=== PATIENT | female | born 1960 | race Hispanic/Latino ===

== ENCOUNTER 2025-04-16 16:54 | Emergency (ER) | payer MEDICARE, SELFPAY ==
[2025-04-16 17:27] VITALS: BP 163/68; PULSE 84; RESP 16; TEMP 36.9; O2SAT 100
--- NOTE | 2025-04-16 17:41 | ED.NECK ---
HPI - Neck Pain/Injury General Chief Complaint: Neck Pain/Injury Stated Complaint: neck pain Time Seen by Provider: 04/16/25 17:15 Source: patient, family and RN notes reviewed Mode of arrival: ambulatory Limitations: no limitations and language barrier (Client Development Consultant used) History of Present Illness HPI Narrative: 65-year-old female presents to the [facility] complaining of neck pain that started 2 days ago. Reports the pain is on the right side of her neck, she denies any falls or injuries, she said she woke up with the symptoms. Patient reports her neck feels tight and radiates pain up into the back of her head. She has also been dealing with back pain to her right lower back 2 weeks. Patient denies any falls or injuries. Denies any numbness, tingling, radiating pain, she pains, weakness, chest pain, difficulty breathing, vision changes, headaches, slurred speech, or any other symptoms. Patient has been taking eating since yesterday for pain, she has been trying Motrin without relief. Patient is tearful in the room. Patient reports a history of diabetes and hypertension. Patient has never had pain like this in her neck before. Related Data Home Medications ?Medication ?Instructions ?Recorded ?Confirmed ?Last Taken ?Type insulin degludec 100 unit/mL (3 unit subcut 04/16/25 Unknown History mL) subcutaneous pen (Tresiba FlexTouch U-100 insulin) levothyroxine 75 mcg tablet mcg 04/16/25 Unknown History lisinopril 20 tablet 04/16/25 Unknown History mg-hydrochlorothiazide 25 mg tablet metformin 1,000 mg tablet mg 04/16/25 Unknown History Allergies Allergy/AdvReac Type Severity Reaction Status Date / Time No Known Allergies Allergy Mild Verified 04/16/25 17:26 Review of Systems Review of Systems: CONSTITUTIONAL: Denies fever, chills, or sweats. EYES: Denies visual changes, redness, or discharge. ENT: Denies rhinorrhea, congestion, sore throat, or otalgia. CARDIOVASCULAR: Denies chest pain, palpitations, dizziness, lightheadedness or edema. RESPIRATORY: Denies cough or dyspnea. GASTROINTESTINAL: Denies abdominal pain, nausea, vomiting, or diarrhea. GENITOURINARY: Denies dysuria or hematuria. SKIN: Denies rash or itching. MUSCULOSKELETAL: Positive for neck pain and low Back pain. Negative for joint pain, or myalgia. NEUROLOGIC: Denies headache,, loss of consciousness, slurred speech, focal weakness, numbness, or weakness. PSYCHIATRIC: Denies anxiety or depression. All other systems reviewed are negative, except as documented in HPI. PMFSH Comments At the time of my signature, I reviewed and agree with the nursing past medical, surgical, social, and family history. There is no relevant family history pertinent to the patient complaint. Exam Narrative: GENERAL: This is a well-nourished, well-developed adult, in no apparent distress. They are non ill-appearing, nontoxic appearing. Patient is crying. HEAD: normocephalic, atraumatic. EYES: Sclera clear/white. Conjunctiva normal. Vision is grossly intact. Extraocular movements intact. Pupils PERRLA EARS: External ears normal, auditory canals clear and without drainage, TMs normal without perforation. Hearing grossly intact. NOSE: External nose normal THROAT: Mucous membranes moist, NECK: Neck supple, non-tender without lymphadenopathy, masses or thyromegaly. Limited range of motion due to pain. Right-sided neck is tender to palpate into the right trapezius muscle. CARDIOVASCULAR: Regular rate and rhythm without murmurs, gallops, or rubs. RESPIRATORY: Clear to auscultation. Breath sounds equal bilaterally. No wheezes, rales, or rhonchi. SKIN: warm, Dry, intact with no suspicious lesions or rash, good texture and turgor. NEURO: awake, alert, and oriented to person, place and time. There were no obvious focal neurologic abnormalities. EXTREMITIES: No joint tenderness, effusion, or edema noted. BACK: Mild tenderness to right lower back. No cervical, thoracic, lumbar point tenderness, crepitus, or step-offs. No CVA tenderness. Course Course Emergency Course: Portions of this record may have been created with voice recognition software Level of Care: Express Care Visit Vital Signs Vital signs: Vital Signs Temperature 98.4 F 04/16/25: Pulse Rate 84 04/16/25 17: Respiratory Rate 16 04/16/25 17: Blood Pressure 163/68 H 04/16/25 17: Pulse Oximetry 100 04/16/25 17: Temperature 98.4 F 04/16/25 17: Pulse Rate 84 04/16/25 17:27 Respiratory Rate 16 04/16/25 17:27 Blood Pressure 163/68 H 04/16/25 17:27 Pulse Oximetry 100 04/16/25 17:27 Reviewed MDM - Neck Pain/Injury MDM Narrative Medical decision making narrative: Patient tearful in the room during exam due to pain, she says she has never had pain like this before. She denies any falls or injuries, she denies any issues with her neck or back in the past. I suspect patient probably has a cervical strain. I offered patient ER transfer for further evaluation management of symptoms given severe pain I informed her we are unable to provider any rapid pain relief your at the [facility]. Patient would like to try outpatient medications prior to going to the ER. Will send a prescription of cyclobenzaprine to her pharmacy and lidocaine patches. Discussed supportive care. Strict ER precautions discussed with patient specially pain is not resolving other associated symptoms occurs such as headaches, vision changes, one-sided weakness, chest pain, breathing problems, fevers numbness, tingling, shooting pains, or any serious concerns Differential Diagnosis Differential diagnosis: Likely cervical radiculopathy, cervical spondylosis and strain of neck muscle Critical Care Time Critical Care Time Critical Care Time: No Discharge Plan Discharge Clinical Impression: Strain of neck muscle Qualifiers: Encounter type: initial encounter Qualified Code(s): S16.1XXA - Strain of muscle, fascia and tendon at neck level, initial encounter Patient Disposition: Home Condition: Stable Instructions: Cervical Sprain (ED) Additional Instructions: Take the muscle relaxer as directed. Do not drive or operate heavy machine, or work while taking the medication as it can make you drowsy. Use the lidocaine patches as directed. You may take ibuprofen 600 mg to 800 mg every 6-8 hours. Do not exceed more than 800 mg of ibuprofen per dose. Do not exceed more than 3200 mg ibuprofen in a day. You may take up to 1000 mg Tylenol every 6-8 hours. Do not exceed 1000 mg per dose, do exceed more than 4000 mg of Tylenol in a day. Apply ice or heat to the affected area, 20 minutes at a time, a few times a day. Please follow-up with your primary care provider 3-5 days. Go to the emergency department if your pain is uncontrollable, developed numbness, tingling, weakness, chest pain, breathing problems, nausea, vomiting, fevers, or any serious concerns [place] el relajante muscular seg?n las indicaciones. No conduzca, opere maquinaria pesada ni trabaje mientras est? tomando el medicamento, ya que puede causarle somnolencia. Use los parches de lidoca?na seg?n las indicaciones. Puede sosa ibuprofeno de 600 mg a 800 mg cada 6 a 8 horas. No exceda los 800 mg de ibuprofeno por dosis. No exceda los 3200 mg de ibuprofeno al d?a. Puede sosa hasta 1000 mg de paracetamol cada 6 a 8 horas. No exceda los 1000 mg por dosis ni los 4000 mg de paracetamol al d?a. Aplique hielo o calor en la gurpreet afectada [place] 20 minutos, varias veces al d?a. Consulte con rowe m?dico de cabecera en 3 a 5 d?as. Acuda al servicio de urgencias si el dolor es incontrolable, presenta entumecimiento, hormigueo, debilidad, dolor en el pecho, dificultad para respirar, n?useas, v?mitos, fiebre o cualquier otra preocupaci?n grave. Patient Language: Japanese Prescriptions: New cyclobenzaprine 5 mg tablet 5 mg PO TID PRN (Reason: muscle spasm) Qty: 14 0RF lidocaine 5 % adhesive patch,medicated 1 patch topical DAILY Qty: 15 0RF Rx Instructions: leave on most painful area for up to 12 hrs No Action levothyroxine 75 mcg tablet metformin 1,000 mg tablet lisinopril-hydrochlorothiazide 20-25 mg tablet insulin degludec [Tresiba FlexTouch U-100] 100 unit/mL (3 mL) insulin pen SUBCUT Follow-up/Referrals: Rafael,MANGO Sosa [Primary Care Provider, Unknown] Time of Disposition: 17:24
== END 2025-04-16 17:32 | disposition home or self-care (01) ==
PROVIDERS: PCP Physician Assistant Medical
DX: S16.1XXA Strain of muscle, fascia and tendon at neck level, initial encounter (principal); E11.9 Type 2 diabetes mellitus without complications; I10 Essential (primary) hypertension; Z79.4 Long term (current) use of insulin; Z79.899 Other long term (current) drug therapy; Z79.84 Long term (current) use of oral hypoglycemic drugs; X58.XXXA Exposure to other specified factors, initial encounter
CPT/HCPCS: 99203; G0463

== ENCOUNTER 2025-05-24 12:44 | Emergency (ER) | payer MEDICARE, SELFPAY ==
[2025-05-24] VITALS (14 sets, daily range): BP systolic 137–185; BP diastolic 56–74; PULSE 18–82; RESP 12–21; TEMP 36.6; O2SAT 98–100
--- NOTE | ~2025-05-24 | CT_ITS ---
EXAMINATION: CT brain wo con DATE: 05/24/2025 14:39 INDICATION: Dizziness, headache. TECHNIQUE: Computed tomography (CT) of the head was performed without intravenous contrast. The mA was adjusted according to patient size. Iterative reconstruction technique was employed. The dose-length product was 605.33 mGy-cm. COMPARISON: None FINDINGS: No acute bleed. No ventriculomegaly or midline shift. No evidence of effacement of sulci. No acute bony lesions. IMPRESSION: 1. No acute findings in this limited noncontrast CT head. Reviewed, dictated and finalized at location T. ERCIAL CREDIT PORTFOLIO MANAGER
--- NOTE | ~2025-05-24 | XR_ITS ---
EXAMINATION: XR chest 1V DATE: 05/24/2025 14:47 INDICATION: Rule out pneumonia. TECHNIQUE: A single frontal view of the chest was obtained. COMPARISON: Chest x-ray dated 12/02/2016. FINDINGS: Heart size is normal. Atherosclerotic aorta. Lungs are free of acute process. IMPRESSION: 1. No acute pulmonary findings. Reviewed, dictated and finalized at location T. 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
--- NOTE | 2025-05-24 12:46 | ECG_ITS ---
Test Date: 2025-05-24 12:51:19 Measurements Intervals [place] Rate: 69 P: 8 AK: 166 QRS: 39 QRSD: 76 T: 29 QT: 384 QTc: 413 Interpretive Statements SINUS RHYTHM CONSIDER INFERIOR INFARCT, AGE INDETERMINATE BASELINE ARTIFACT- I, II, AVR, AVL, AVF, V1, V3-V6 ABNORMAL ECG No previous ECG available for comparison Electronically Signed On 05-24-2025 20:19:17 CARDIAC SURGEON by Salvador Dominguez D.O.
--- NOTE | 2025-05-24 14:24 | ED_ITS ---
HPI - Dizziness General Chief Complaint: Dizziness Stated Complaint: head hurts, dizzy x4days Time Seen by Provider: 05/24/25 14:06 History of Present Illness HPI Narrative: Pt is a 65-year-old female presents to the ER with a 5 day history of dizziness and 2-3 day history of headache. She reports when she sits up the room is spinning. Patient also endorses a full feeling in her sinuses and left ear fullness/popping. She denies any visual changes, nausea/vomiting, or numbness/tingling in any of her extremities. Patient endorses a history of vertigo, high blood pressure, diabetes, and abnormal thyroid levels. Related Data Home Medications ?Medication ?Instructions ?Recorded ?Confirmed ?Last Taken ?Type insulin degludec 100 unit/mL (3 unit subcut 04/16/25 Unknown History mL) subcutaneous pen (Tresiba FlexTouch U-100 insulin) levothyroxine 75 mcg tablet mcg 04/16/25 Unknown Hist ory lisinopril 20 tablet 04/16/25 Unknown His tory mg-hydrochlorothiazide 25 mg tablet metformin 1,000 mg tablet mg 04/16/25 Unknown History Allergies Allergy/AdvReac Type Severity Reaction Status Date / Time No Known Allergies Allergy Mild Verified 05/24/25 14:49 Review of Systems 2 Review of Systems: All systems reviewed & are unremarkable except as noted in HPI and below Exam 2 Narrative: GENERAL: Ill appearing, well-nourished, non-toxic, in acute distress with movement. HEAD: Normocephalic, atraumatic. NECK: Supple. No adenopathy, no masses. RESPIRATORY: Airway patent, respirations nonlabored. Clear to auscultation bilaterally, no rales, rhonchi, wheezing. CARDIOVASCULAR: Regular rate and rhythm without murmurs, rubs, or gallops. Peripheral pulses 2+ and equal bilaterally. ABDOMINAL: Soft, nontender, nondistended, no hepatosplenomegaly. Normoactive BS. MUSCULOSKELETAL: Moves all extremities. Strength/ROM intact without gross deformities. SKIN: Warm, dry, normal color. No rashes. NEURO: A&O X3. Speech clear. Cranial nerves II-XII intact. No ataxic movements. PSYCHIATRIC: Appropriate mood, flat affect. Normal interaction. Course Vital Signs Vital signs: Vital Signs Temperature 36.6 C 05/24/25 12:46 Pulse Rate 81 05/24/25 12:46 Respiratory Rate 20 05/24/25 12:46 Blood Pressure 150/60 H 05/24/25 12:46 Pulse Oximetry 98 05/24/25 12:46 Oxygen Delivery Room Air 05/24/25 12:46 Temperature 36.6 C 05/24/25 12:46 Pulse Rate 59 L 05/24/25 16:15 Respiratory Rate 12 05/24/25 16:15 Blood Pressure 137/60 05/24/25 16:02 Pulse Oximetry 100 05/24/25 14:59 Oxygen Delivery Room Air 05/24/25 14:59 MDM MDM Narrative Medical decision making narrative: Pt is a 65-year-old female presents to the ER with a 5 day history of dizziness and 2-3 day history of headache. She reports when she sits up the room is spinning. Patient also endorses a full feeling in her sinuses and left ear fullness/popping. She denies any visual changes, nausea/vomiting, or numbness/tingling in any of her extremities. Patient endorses a history of vertigo, high blood pressure, diabetes, and abnormal thyroid levels. Labs Ordered: CBC, CMP, COVID/flu/RSV, TSH, PTT, INR, ethanol, UDS, UA Imaging Ordered: CT head, chest x-ray Medications Ordered: Toradol 15 mg IV, Valium p.o., Reglan PO, 1 L normal saline IV bolus, meclizine p.o., Tylenol 1 g p.o. Results: Patient's respiratory swab was positive for influenza A Diagnosis: BPPV, influenza A Patient Education/Shared MDM: Upon review of lab work, imaging, patient's symptoms, it is believed this is an episode of BPPV rather than central vertigo. She was able to tolerate a slow walk around the emergency department. Results of lab work and imaging shared with patient. Extensive discussion between patient, her family and nurse practitioner regarding plan. Patient ultimately is requesting to be discharged home with medications to treat her symptoms. She continues to endorse a ?sinus headache so she will be given a dose of steroids here in the ER and discharged home with a prescription for them. Patient strongly advised to maintain hydration status upon discharge and follow-up with her PCP as soon as possible for further evaluation. She will be discharged home with a prescription for meclizine, Reglan, and Valium. Patient was advised use Tylenol and/or ibuprofen for pain control. Strict return precautions provided. Patient verbalized understanding and is in agreement with plan. Vital signs stable at time of discharge. All questions answered. Differential Diagnosis Differential Diagnosis: Influenza, vertigo, COVID, abnormal thyroid levels, alcohol intoxication Lab Data MDM Lab Attestation statement: I personally reviewed the patient's lab results. 05/24/25 14:31 05/24/25 14:31 Labs: Lab Results 05/24/25 05/24/25 Range/Units 14:30 14:31 WBC 7.8 (4.5-10.0) K/mm3 RBC 4.34 (4.2-5.4) M/mm3 Hgb 13.3 (12.0-15.0) g/dL Hct 38.7 (37.0-47.0) % MCV 89.2 (80-100) fl MCH 30.6 (26-34) pg MCHC 34.4 (32-36) g/dl RDW 11.6 (11.5-14.5) % Plt Count 261 (150-375) k/mm3 MPV 10.7 H (7.4-10.4) fl Immature Gran % (Auto) 0.3 (0-0.5) % Neut % (Auto) 60.9 (45.5-73.1) % Lymph % (Auto) 31.2 (18.3-44.2) % [place] % (Auto) 5.8 (2.6-8.5) % Eos % (Auto) 1.4 (0-4.4) % Baso % (Auto) 0.4 (0.2-1.2) % Lymph # (Auto) 2.43 (0.9-3.2) K/mm3 [place] # (Auto) 0.5 (0.1-0.6) K/mm3 Eos # (Auto) 0.1 (0-0.3) K/mm3 Baso # (Auto) 0.0 (0.0-0.1) K/mm3 Abs Immat Gran (auto) 0.02 (0.00-0.031) K/mm3 Absolute Neuts (auto) 4.8 (1.3-6.7) K/mm3 Absolute Nucleated RBC 0.000 (0.0-0.012) K/mm3 Nucleated RBC % 0.0 (0.0-0.2) % PT 13.9 (11.1-14.7) Seconds INR 1.1 APTT 25.6 (22.3-36.8) Seconds Sodium 139 (137-145) mmol/L Potassium 4.0 (3.4-5.0) mmol/L Chloride 106 (98-107) mmol/L Carbon Dioxide 22 (22-30) mmol/L Anion Gap 11 (4-12) mmol/L BUN 24 H (7-17) mg/dL Creatinine 0.90 (0.7-1.0) mg/dL Estim Creat Clear Calc Not Reportable Estimated GFR > 60 (59 - ) Glucose 111 H (65-110) mg/dL Calcium 9.2 (8.4-10.2) mg/dL Total Bilirubin 0.5 (0.2-1.3) mg/dL AST 33 (14-36) U/L ALT 27 (6-35) U/L Alkaline Phosphatase 107 (38-126) U/L Total Protein 7.8 (6.3-8.2) g/dL Albumin 4.1 (3.5-5.1) g/dL TSH (Reflex) 2.180 (0.465-4.68) uIU/mL Urine Color Yellow (Yellow) Urine Appearance Clear (Clear) Urine pH 8.0 (5.0-9.0) Ur Specific [place] 1.016 (1.001-1.035) Urine Protein Negative (Negative) mg/dL Urine Glucose (UA) Negative (Negative) mg/dL Urine Ketones Negative (Negative) mg/dL Ur Blood (Man) Negative (Negative) Urine Nitrate Negative (Negative) Urine Bilirubin Negative (Negative) Urine Urobilinogen 1.0 (<2.0) mg/dL Add Ur Microanalysis Reviewed Leukocyte Esterase Rfl 1+ H (Negative) TU/UL Urine RBC 0-2 (0-2) /hpf Urine WBC 0-5 (0-3) /hpf Ur Squamous Epith Cells Occasional (Few) /hpf Urine Bacteria None seen /hpf Urine Casts 0-2 Urine Opiates Screen Negative (Negative) Urine Methadone Screen Negative (Negative) Ur Barbiturates Screen Negative (Negative) Ur Phencyclidine Scrn Negative (Negative) Ur Amphetamine Screen Negative (Negative) U Benzodiazepines Scrn Negative (Negative) Urine Cocaine Screen Negative (Negative) U Cannabinoids Screen Negative (Negative) Ethyl Alcohol < 10 (<10) mg/dL Influenza A (RT-PCR) Positive A (Negative) Influenza B (RT-PCR) Negative (Negative) RSV (RT-PCR) Negative (Negative) SARS-CoV-2 RNA (RT-PCR) Negative (Negative) Imaging Data Attestation: I personally reviewed and interpreted this imaging study as follows: Radiologist's impression: ITS Impressions Head CT 05/24/25 14:40 IMPRESSION: 1. No acute findings in this limited noncontrast CT head. Chest X-Ray 05/24/25 14:56 IMPRESSION: 1. No acute pulmonary findings. Discharge Plan Discharge Clinical Impression: Benign paroxysmal positional vertigo, Influenza A, Upper respiratory infection, Sinusitis, Dizziness Patient Disposition: Home Condition: Stable Instructions: Antibiotic Form, Influenza (ED), Benign Paroxysmal Positional Vertigo (ED) Additional Instructions: Please return to the ER with any worsening symptoms, including worsening headache, visual changes, or alteration in mental status. Follow-up with primary care provider as soon as possible for re-evaluation. Take all medications as prescribed, including regularly scheduled medications. You may take Tylenol and/or ibuprofen as needed for pain or fever control. Please take Valium and meclizine sparingly, as they can be sedating. The steroids you received in the ER may cause your blood sugar to rise temporarily. You may take Reglan as needed for nausea. Patient Language: Icelandic Prescriptions: New meclizine 25 mg tablet 25 mg PO TID Qty: 20 0RF diazepam [Valium] 5 mg tablet 5 mg PO BID PRN (Reason: vertigo) Qty: 10 0RF metoclopramide HCl [Reglan] 10 mg tablet 10 mg PO Q6H PRN (Reason: nausea and vomiting) Qty: 20 0RF No Action cyclobenzaprine 5 mg tablet 5 mg PO TID PRN (Reason: muscle spasm) Qty: 14 0RF lidocaine 5 % adhesive patch,medicated 1 patch topical DAILY Qty: 15 0RF Rx Instructions: leave on most painful area for up to 12 hrs levothyroxine 75 mcg tablet metformin 1,000 mg tablet lisinopril-hydrochlorothiazide 20-25 mg tablet insulin degludec [Tresiba FlexTouch U-100] 100 unit/mL (3 mL) insulin pen SUBCUT Follow-up/Referrals: Rafael,MANGO Sosa [Primary Care Provider, Unknown] Time of Disposition: 17:44
[2025-05-24 14:39] LABS: Hematocrit 38.7 % (37.0-47.0); Hemoglobin 13.3 g/dL (12.0-15.0); Immature Granulocyte Percent A 0.3 % (0-0.5); Lymphocytes Absolute Auto 2.43 K/mm3 (0.9-3.2); Mean Corpuscular HGB Conc 34.4 g/dl (32-36); Mean Corpuscular Hemoglobin 30.6 pg (26-34); Mean Corpuscular Volume 89.2 fl (80-100); Nucleated Red Blood Cells Absolute Auto 0.000 K/mm3 (0.0-0.012); Nucleated Red Blood Cells Perc 0.0 % (0.0-0.2); Platelet Count Result 261 k/mm3 (150-375); Red Blood Count 4.34 M/mm3 (4.2-5.4); White Blood Count 7.8 K/mm3 (4.5-10.0)
[2025-05-24 14:50] LABS: INR 1.1; Prothrombin Time 13.9 Seconds (11.1-14.7)
[2025-05-24 14:51] LABS: Partial Thromboplastin Time 25.6 Seconds (22.3-36.8)
[2025-05-24] MEDS: ACETAMINOPHEN 500 MG TABLET 1000 MG PO (14:52)
[2025-05-24] MEDS: SODIUM CHLORIDE 0.9% IV 1,000 ML 999 ML IV CONT (14:52)
[2025-05-24 14:53] LABS: Add Urine Microscopic? YES; Appearance Urine Clear (Clear); Glucose Urine UA Negative (Negative); Leukocyte Esterase Ur 1+ LEU/UL (Negative); Need Manual Microscopic Reviewed; Nitrate Urine Negative (Negative); Non Pathogenic Casts 0-2; Specific Grav Ur 1.016 (1.001-1.035)
[2025-05-24] MEDS: MECLIZINE HCL 25 MG TABLET PO (14:53)
[2025-05-24 15:02] LABS: Alanine Aminotransferase 27 U/L (6-35); Albumin Level 4.1 g/dL (3.5-5.1); Alkaline Phosphatase 107 U/L (38-126); Anion Gap 11 mmol/L (4-12); Aspartate Amino Transferase 33 U/L (14-36); Bilirubin,Total 0.5 mg/dL (0.2-1.3); Blood Urea Nitrogen 24 mg/dL (7-17); Calcium 9.2 mg/dL (8.4-10.2); Carbon Dioxide 22 mmol/L (22-30); Chloride 106 mmol/L (98-107); Estimated Glomerular Filt Rate > 60; Glucose 111 mg/dL (65-110); Potassium 4.0 mmol/L (3.4-5.0); Sodium 139 mmol/L (137-145); Total Protein 7.8 g/dL (6.3-8.2)
[2025-05-24 15:07] LABS: Cannabinoid Screen Urine Negative (Negative)
[2025-05-24 15:15] LABS: Influenza A QL RT-PCR Positive (Negative); Influenza B QL RT-PCR Negative (Negative); RSV RNA, RT-PCR Negative (Negative); SARS-CoV-2 RNA PCR Negative (Negative)
[2025-05-24 15:27] LABS: Thyroid Stimulating Hormone Reflex 2.180 uIU/mL (0.465-4.68)
[2025-05-24] MEDS: KETOROLAC 15 MG/ML VIAL (*BKC) IV PUSH (16:02)
[2025-05-24] MEDS: diazePAM (*CRX) 5 MG TABLET PO (16:03)
[2025-05-24] MEDS: METOCLOPRAMIDE HCL 10 MG TABLET PO (16:03)
== END 2025-05-24 18:19 | disposition home or self-care (01) ==
PROVIDERS: Emergency Provider Registered Nurse; PCP Physician Assistant Medical
DX: H81.10 Benign paroxysmal vertigo, unspecified ear (principal); J10.1 Influenza due to other identified influenza virus with other respiratory manifestations; J32.9 Chronic sinusitis, unspecified; I10 Essential (primary) hypertension; E11.9 Type 2 diabetes mellitus without complications; Z79.899 Other long term (current) drug therapy; Z20.822 Contact with and (suspected) exposure to COVID-19
CPT/HCPCS: 36415; 70450; 71045; 80053; 80307; 81001; 82077; 84443; 85025; 85610; 85730; 87086; 87637; 93005; 96361; 96374; 99284; A9270; J1885; J7030; J7512